=== PATIENT | male | born 1990 | race Caucasian/White ===

== ENCOUNTER 2020-10-12 15:39 | Emergency (ER) | payer OTHER ==
[~2020-10-12] VITALS: Ht 180.3 cm; Wt 84.0 kg
[2020-10-12 15:50] VITALS: BP 134/91
[2020-10-12] MEDS ORDERED: diphenhydrAMINE 50 MG/ML VIAL IM ONE (16:30)
[2020-10-12] MEDS ORDERED: PROCHLORPERAZINE 10 MG/2 ML VIAL. IM ONE (16:30)
[2020-10-12] MEDS ORDERED: KETOROLAC 60 MG/2 ML VIAL. IM ONE (16:30)
[2020-10-12] MEDS ORDERED: ONDA4TAB12 PO (16:32)
--- NOTE | 2020-10-12 16:33 | PHYS DOC ---
General Adult EDM: Chief Complaint: HEADACHE HPI: HPI: Patient is a 30-year-old male who presents with migraine. Patient states that symptoms started last night and when he woke up this morning he felt better but as the days progressed it has gotten worse. Patient reports nausea and vomiting x1 and light sensitivity. Patient patient says he has a history of migraines and he normally gets a couple year. Reporting pain behind his eyes and worse with bending over or standing up. Rates pain a 7 on a 10, took 1 g ibuprofen this morning with little relief. Review of Systems: Review of Systems: Constitutional: Denies fever or chills Eyes: Denies change in visual acuity HENT: Denies nasal congestion or sore throat Respiratory: Denies cough or shortness of breath Cardiovascular: Denies chest pain or edema GI: Denies abdominal pain, reports nausea and vomiting : Denies dysuria Musculoskeletal: Denies back pain or joint pain Integument: Denies rash Neurologic: Reports headache aggravated by movement, denies focal weakness or sensory changes Endocrine: Denies polyuria or polydipsia Lymphatic: Denies swollen glands Psychiatric: Denies depression or anxiety Physical Exam: PE: Constitutional: Well developed, well nourished, no acute distress, non-toxic appearance. [] HENT: Normocephalic, atraumatic, bilateral external ears normal, oropharynx moist, no oral exudates, nose normal. [] Eyes: PERRLA, EOMI, conjunctiva normal, no discharge. [] Neck: Normal range of motion, no tenderness, supple, no stridor. [] Cardiovascular:Heart rate regular rhythm, no murmur [] Lungs & Thorax: Bilateral breath sounds clear to auscultation [] Abdomen: Bowel sounds normal, soft, no tenderness, no masses, no pulsatile masses. [] Skin: Warm, dry, no erythema, no rash. [] Back: No tenderness, no CVA tenderness. [] Extremities: No tenderness, no cyanosis, no clubbing, ROM intact, no edema. [] Neurologic: Alert and oriented X 3, normal motor function, normal sensory function, no focal deficits noted. [] Psychologic: Affect normal, judgement normal, mood normal. [] EKG: EKG: [] Radiology/Procedures: Radiology/Procedures: [] Heart Score: Risk Factors: Risk Factors: DM, Current or recent (<one month) smoker, HTN, HLP, family history of CAD, obesity. Risk Scores: Score 0 - 3: 2.5% MACE over next 6 weeks - Discharge Home Score 4 - 6: 20.3% MACE over next 6 weeks - Admit for Clinical Observation Score 7 - 10: 72.7% MACE over next 6 weeks - Early Invasive Strategies Course & Med Decision Making: Course & Med Decision Making Pertinent Labs and Imaging studies reviewed. (See chart for details) []Patient is a 30-year-old male who presents with migraine. Patient states that symptoms started last night and when he woke up this morning he felt better but as the days progressed it has gotten worse. Patient reports nausea and vomiting x1 and light sensitivity. Patient patient says he has a history of migraines and he normally gets a couple year. Reporting pain behind his eyes and worse with bending over or standing up. Rates pain a 7 on a 10, took 1000mg of Ibuprofen this morning with little relief. Symptoms are consistent with migraines in the past. Denies worst headache of his life, denies thunderclap, negative babinski. Patient is hemodynamically stable and able to ambulate upon discharge. IM torodal, benadryl, compazine given. Prescription for Zofran given. Dragon Disclaimer: Dragon Disclaimer: This electronic medical record was generated, in whole or in part, using a voice recognition dictation system. Departure Departure: Impression: Primary Impression: Migraine Qualified Codes: G43.009 - Migraine without aura, not intractable, without status migrainosus Disposition: 01 MI HOME SELF CARE/HOMELESS Referrals: SRI CONNER DO (PCP) Patient Instructions: Recurrent Migraine Headache, Xyur-[id number] Additional Instructions: You are seen emergency room today for migraine headache. IM torodal, benadryl, compazine given. Prescription for Zofran given. Please return emergency room with worsening symptoms or concerns. Otherwise follow-up with your primary care physician for further management of chronic migraines. EMERGENCY DEPARTMENT GENERAL DISCHARGE INSTRUCTIONS Thank you for coming to [facility] (ED) today and trusting us with you care. We trust that you had a positivie experience in our Emergency Department. If you wish to speak to the department management, you may call the director at [phone]. YOUR FOLLOW UP INSTRUCTIONS ARE FOLLOWS: 1. Do you have a private Doctor? If you do not have a private doctor, please ask for a resource list of physicians or clinics that may be able to assist you with fol low up care. 2. The Emergency Physician has interpreted your x-rays. The X-Ray specialist will also review them. If there is a change in the findings, you will be notified in 48 hours when at all possible. 3. A lab test or culture has been done, your results will be reviewed and you will be notified if you need a change in treatment. ADDITIONAL INSTRUCTIONS AND INFORMATION: 1. Your care today has been supervised by a physician who is specially trained in emergency care. Many problems require more than one evaluation for a complete diagnosis and treatment. We recommend that you schedule your follow up appointment as r ecommended to ensure complete treatment of you illness or injury. If you are unable to obtain follow up care and continue to have a problem, or if your condition worsens, we recommend that you return to the ED. 2. We are not able to safely determine your condition over the phone nor are we able to give sound medical advice over the phone. For these safety reasons, if you call for medical advice we will ask you to come to the ED for further evaluation. 3. If you have any questions regarding these discharge instructions please call the ED at [phone]. SAFETY INFORMATION: In the interest of safety, wellness, and injury prevention; we encourage you to wear your sealbelt, if you smoke; quite smoking, and we encourage family to use a protective helmet for bicycling and other sporting events that present an increased risk for head injury. IF YOUR SYMPTOMS WORSEN OR NEW SYMPTOMS DEVELOP, OR YOU HAVE CONCERNS ABOUT YOUR CONDITION; OR IF YOUR CONDITION WORSENS WHILE YOU ARE WAITING FOR YOUR FOLLOW UP APPOINTMENT; EITHER CONTACT YOUR PRIMARY CARE DOCTOR, THE PHYSICIAN WHOSE NAME AND NUMBER YOU WERE GIVEN, OR RETURN TO THE ED IMMEDIATELY. Scripts Ondansetron (ONDANSETRON ODT) 4 Mg Tab.rapdis 1 TAB PO PRN Q6-8HRS for nausea, #16 TAB Prov: RODRIGUEZ SÁNCHEZ APRN 10/12/20 RODRIGUEZ SÁNCHEZ APRN Oct 12, 2020 16:33
== END 2020-10-12 16:54 | disposition home or self-care (01) ==
LOC: EDBD 15:39 → ER 15:39
DX: G43.009 Migraine without aura, not intractable, without status migrainosus (principal); R11.2 Nausea with vomiting, unspecified
CPT/HCPCS: 96372; 99284; J0780; J1200; J1885

== ENCOUNTER 2020-10-22 16:39 | Emergency (ER) | payer OTHER ==
[~2020-10-22] VITALS: Ht 180.3 cm; Wt 84.0 kg
[~2020-10-22 16:39] MED LIST: ONDA4TAB12 PO
[2020-10-22 17:25] VITALS: BP 159/89
--- NOTE | 2020-10-22 17:27 | EKG ---
[address] [address] Test Date: 2020-10-22 Test Time: 17:05:47 Pat Name: DANIEL PAYAN Department: Room: Gender: M [employer]iller: : 1990 Requested By: DEPARTMENT EMERGENCY Order Number: [id number] Reading MD: Measurements Intervals [place] Rate: 69 P: 65 [place]: 158 QRS: 68 QRSD: 92 T: 43 QT: 376 QTc: 409 Interpretive Statements SINUS RHYTHM NORMAL ECG RI6.02 No previous ECG available for comparison
--- NOTE | 2020-10-22 17:32 | PHYS DOC ---
Past History Past Medical History: Migraines Past Medical History OCD Past Surgical History: No Surgical History Smoking: Greater than 1 pack/day Alcohol Use: None Drug Use: None General Adult EDM: Chief Complaint: CHEST PAIN HPI: HPI: Patient is a 30 year old healthy male who presents with chest wall discomfort. He states it has been ongoing for the past 5 days. He states he notices it more when he is sitting and resting and it does not increase with exertion or emotion. The pain does not increase or decrease with food intake. He also says he has had increasing tension headaches recently due to stress. (His significant other recently had surgery for an ectopic , he also has OCD and has been undergoing immersion therapy). He has never had this type of pain before. He does not recall anything that could have brought this pain on, including heavy workouts. He has not had any recent long travel, infections or sick contacts, use of exogenous hormones like testosterone, trauma or surgeries. He has no FH of CAD in himself or his family, but does have a FH of HTN. He currently rates his pain +5/10, but states it is manageable and did not want any pain medication. He has no other complaints at this time. Review of Systems: Review of Systems: Constitutional: Denies fever or chills Eyes: Denies redness or eye pain HENT: Denies nasal congestion or sore throat Respiratory: Denies cough or shortness of breath Cardiovascular: States his chest pain has been constant for the past five days. GI: Denies abdominal pain, nausea, or vomiting : Denies dysuria or hematuria Musculoskeletal: Denies back pain or joint pain Integument: Denies rash or skin lesions Neurologic: Denies headache, focal weakness or sensory changes Complete systems were reviewed and found to be within normal limits, except as documented in this note. Allergies: Allergies: Allergies Coded Allergies Type Severity Reaction Last Updated Verified No Known Drug Allergies 10/12/20 No Physical Exam: PE: Constitutional: Well developed, well nourished, no acute distress, non-toxic olive earance HENT: Normocephalic, atraumatic Eyes: PERRL, EOMI, conjunctiva normal, no discharge Neck: Normal range of motion, no tenderness, supple Lungs & Thorax: No respiratory distress, equal chest rise and fall Heart: RRR no m/r/g. Chest wall tenderness with palpation bilaterally but moreso on the L than the right. Tenderness also extends in to the L shoulder and trapezius. Abdomen: Soft, no tenderness Skin: Warm, dry, no erythema, no rash Back: No midline tenderness, no CVA tenderness. Paraspinal and trapezius muscle hypertonicity present on the L. Extremities: No tenderness, ROM intact, no edema Neurologic: Alert and oriented X 3, normal motor function, normal sensory function, no focal deficits noted Psychologic: Affect normal, judgment normal Current Patient Data: Vital Signs: Vital Signs Date Time Temp Pulse Resp B/P (MAP) Pulse Ox O2 Delivery O2 Flow Rate FiO2 10/22/20 17:25 98.2 67 16 159/89 (112) 99 Room Air EKG: EKG: @1705 NSR at 69bpm, NO ST elevation, QRS 92ms, QT/QTc 376/409ms Radiology/Procedures: Radiology/Procedures: []PROCEDURE: CHEST AP ONLY XR CHEST 1V Clinical History: Reason: left side chest pain times 5 days, hx of TB in 2013 / . Instructions: / History: Technique: AP view of the chest was obtained at 10/22/2020 5:30 PM. Comparison: None. Findings: The cardiomediastinal silhouette is normal. The pulmonary vasculature is normal. The lungs and pleural margins are clear. Impression: No evidence of an acute cardiopulmonary process. Electronically signed by: Sd Almonte III, MD (10/22/2020 5:44 PM) [facility] Heart Score: HEART Score for Chest Pain: HEART Score for Chest Pain Response (Comments) Value History Slighlty/Non-Suspicious 0 ECG Normal 0 Age < 45 0 Risk Factors 1 or 2 Risk Factors 1 Troponin < Normal Limit 0 Total 1 Risk Factors: Risk Factors: DM, Current or recent (<one month) smoker, HTN, HLP, family history of CAD, obesity. Risk Scores: Score 0 - 3: 2.5% MACE over next 6 weeks - Discharge Home Score 4 - 6: 20.3% MACE over next 6 weeks - Admit for Clinical Observation Score 7 - 10: 72.7% MACE over next 6 weeks - Early Invasive Strategies Course & Med Decision Making: Course & Med Decision Making Pertinent Labs and Imaging studies reviewed. (See chart for details) Misael Cedeño is a 30 yo male that presents today with chest pain. Based on history he is low risk chest pain, his HEART score is +1 (with smoking as his only risk factor). His EKG showed no acute ST elevation, his Troponin was negative, and his CXR was negative for any intra-thoracic abnormality or in fection. He is low risk for PE based on the Wells criteria, therefor PERC was used to stratify his risk for PE, which was negative. He has close follow up with his PCP with an appointment that is already scheduled for next . He also has muscle relaxers at home that he will use for his muscle hypertonicity. I discussed strict return precautions with him including if his pain should worsen, change, or he has any increasing SOB. He did not have any further questions or concerns at this time and was comfortable with following up as an outpt. Patient stable for discharge with outpatient follow-up with PCP. Discussed findings and plan with patient, who acknowledges understanding and agreement. Ignacio Disclaimer: Ignacio Disclaimer: This electronic medical record was generated, in whole or in part, using a voice recognition dictation system. Departure Departure: Impression: Primary Impression: Chest pain Qualified Codes: R07.9 - Chest pain, unspecified Disposition: 01 DC HOME SELF CARE/HOMELESS Condition: STABLE Referrals: SRI CONNER DO (PCP) Patient Instructions: Anxiety and Panic Attacks, Rkmu-[id number], Chest Pain (Nonspecific), Maul-rg-[id number] Additional Instructions: Follow with your doctors for re-evaluation of your symptoms. PATRICK PYLE DO Oct 22, 2020 17:32
[2020-10-22 17:45] LABS: BASO % 1 % (0-3); EOS # 0.1 x10^3/uL (0.0-0.7); EOS % 2 % (0-3); HEMOGLOBIN 15.6 g/dL (13.0-17.5); LYMPH # 2.4 x10^3/uL (1.0-4.8); LYMPH % 34 % (24-48); MEAN CORPUSCULAR HEMOGLOBIN 31 pg (25-35); MEAN CORPUSCULAR HGB CONC 34 g/dL (31-37); MEAN CORPUSCULAR VOLUME 93 fL (79-100); MONO # 0.5 x10^3/uL (0.0-1.1); MONO % 7 % (0-9); NEUT # 3.9 x10^3uL (1.8-7.7); NEUT % 56 % (31-73); PLATELET COUNT 236 x10^3/uL (140-400); RED BLOOD COUNT 4.97 x10^6/uL (4.30-5.70); RED CELL DISTRIBUTION WIDTH 12.5 % (11.5-14.5)
--- NOTE | 2020-10-22 17:46 | RAD ---
XR CHEST 1V Clinical History: Reason: left side chest pain times 5 days, hx of TB in 2013 / . Instructions: / History: Technique: AP view of the chest was obtained at 10/22/2020 5:30 PM. Comparison: None. Findings: The cardiomediastinal silhouette is normal. The pulmonary vasculature is normal. The lungs and pleura l margins are clear. Impression: No evidence of an acute cardiopulmonary process. Electronically signed by: Sd Almonte III, MD (10/22/2020 5:44 PM) [facility]
[2020-10-22 17:55] LABS: CALCIUM 9.2 mg/dL (8.5-10.1); CREATININE 1.1 mg/dL (0.7-1.3); GFR 79.7; POTASSIUM 4.2 mmol/L (3.5-5.1)
[2020-10-22 18:00] LABS: ALBUMIN 4.3 g/dL (3.4-5.0); ALBUMIN/GLOBULIN RATIO 1.3 (1.0-1.7); TOTAL BILIRUBIN 0.4 mg/dL (0.2-1.0); TOTAL PROTEIN 7.5 g/dL (6.4-8.2)
== END 2020-10-22 18:15 | disposition home or self-care (01) ==
LOC: ER 16:39
DX: R07.89 Other chest pain (principal); G43.909 Migraine, unspecified, not intractable, without status migrainosus; F42.9 Obsessive-compulsive disorder, unspecified; F17.200 Nicotine dependence, unspecified, uncomplicated
CPT/HCPCS: 36415; 71045; 80053; 83690; 84484; 85025; 93005; 99285

== ENCOUNTER 2021-02-05 08:31 | Emergency (ER) | payer OTHER ==
[~2021-02-05] VITALS: Ht 180.3 cm; Wt 84.0 kg
[2021-02-05 08:37] VITALS: BP 134/83
--- NOTE | 2021-02-05 08:57 | PHYS DOC ---
Past History Past Medical History: Migraines Past Surgical History: No Surgical History Smoking: Cigarettes, Greater than 1 pack/day Alcohol Use: None Drug Use: None General Adult EDM: Chief Complaint: HEADACHE HPI: HPI: 30-year-old male presents with headache. He describes it as a global headache with pressure. It is moderate to severe in intensity. Patient has a history of migraines, but this does not feel like his usual migraines. This headache seems to be worse. He got his second COVID-19 vaccine yesterday. He started to get a headache last night. Patient denies any numbness, tingling, or altered sensation. No difficulty with speech or ambulation. He does have photophobia. No vomiting. Review of Systems: Review of Systems: Constitutional: Denies fever or chills Eyes: Denies change in visual acuity HENT: Denies nasal congestion or sore throat Respiratory: Denies cough or shortness of breath Cardiovascular: Denies chest pain or edema GI: Denies abdominal pain, nausea, vomiting, bloody stools or diarrhea : Denies dysuria Musculoskeletal: Denies back pain or joint pain Integument: Denies rash Neurologic: Headache. Denies focal weakness or sensory changes Endocrine: Denies polyuria or polydipsia Lymphatic: Denies swollen glands Psychiatric: Denies depression or anxiety Allergies: Allergies: Allergies Coded Allergies Type Severity Reaction Last Updated Verified No Known Drug Allergies 10/12/20 No Physical Exam: PE: Constitutional: Well developed, well nourished, no acute distress, non-toxic appearance. [] HENT: Normocephalic, atraumatic, bilateral external ears normal, oropharynx moist, no oral exudates, nose normal. [] Eyes: PERRLA, EOMI, conjunctiva normal, no discharge. Photophobia[] Neck: Normal range of motion, no tenderness, supple, no stridor. [] Cardiovascular: Heart rate regular rhythm, no murmur [] Lungs & Thorax: Bilateral breath sounds clear to auscultation [] Abdomen: Bowel sounds normal, soft, no tenderness, no masses, no pulsatile masses. [] Skin: Warm, dry, no erythema, no rash. [] Back: No tenderness, no CVA tenderness. [] Extremities: No tenderness, no cyanosis, no clubbing, ROM intact, no edema. [] Neurologic: Alert and oriented X 3, normal motor function, normal sensory function, no focal deficits noted. [] Psychologic: Affect normal, judgement normal, mood normal. [] Current Patient Data: Vital Signs: Vital Signs Date Time Temp Pulse Resp B/P (MAP) Pulse Ox O2 Delivery O2 Flow Rate FiO2 02/05/21 08:37 98.2 88 16 134/83 (100) 96 Room Air EKG: EKG: [] Radiology/Procedures: Radiology/Procedures: [] Heart Score: C/O Chest Pain: N/A Risk Factors: Risk Factors: DM, Current or recent (<one month) smoker, HTN, HLP, family history of CAD, obesity. Risk Scores: Score 0 - 3: 2.5% MACE over next 6 weeks - Discharge Home Score 4 - 6: 20.3% MACE over next 6 weeks - Admit for Clinical Observation Score 7 - 10: 72.7% MACE over next 6 weeks - Early Invasive Strategies Course & Med Decision Making: Course & Med Decision Making Pertinent Labs and Imaging studies reviewed. (See chart for details) The patient's labs are unremarkable. For his headache is given 1 L normal saline, 25 mg of Benadryl, 10 mg Reglan, and 30 mg of Toradol. He is feeling much better at this time and would like to go home. He is stable for discharge at this time. [] Dragon Disclaimer: Ignacio Disclaimer: This electronic medical record was generated, in whole or in part, using a voice recognition dictation system. Departure Departure: Impression: Primary Impression: Headache Qualified Codes: R51.9 - Headache, unspecified Disposition: HOME / SELF CARE / HOMELESS Condition: IMPROVED Referrals: SRI CONNER DO (PCP) Patient Instructions: General Headache Without Cause, [id number] CRYSTAL BRUSH DO February 05, 2021 08:57
[2021-02-05] MEDS ORDERED: METOCLOPRAMIDE HCL 10 MG/2 ML VIAL. IVP ONE (09:00)
[2021-02-05] MEDS ORDERED: diphenhydrAMINE 50 MG/ML VIAL IVP ONE (09:00)
[2021-02-05] MEDS ORDERED: IV NORMAL SALINE 1,000ML 1,000 ML IV ONE (09:00)
[2021-02-05] MEDS ORDERED: KETOROLAC 30 MG/ML VIAL. IVP ONE (09:00)
[2021-02-05 09:15] LABS: BASO # 0.1 x10^3/uL (0.0-0.2); BASO % 1 % (0-3); EOS % 0 % (0-3); HEMATOCRIT 45.9 % (39.0-53.0); HEMOGLOBIN 15.6 g/dL (13.0-17.5); LYMPH # 0.9 x10^3/uL (1.0-4.8); LYMPH % 8 % (24-48); MEAN CORPUSCULAR HEMOGLOBIN 32 pg (25-35); MEAN CORPUSCULAR HGB CONC 34 g/dL (31-37); MEAN CORPUSCULAR VOLUME 95 fL (79-100); MONO # 0.6 x10^3/uL (0.0-1.1); MONO % 6 % (0-9); NEUT # 9.2 x10^3uL (1.8-7.7); NEUT % 85 % (31-73); PLATELET COUNT 198 x10^3/uL (140-400); RED BLOOD COUNT 4.82 x10^6/uL (4.30-5.70); RED CELL DISTRIBUTION WIDTH 12.8 % (11.5-14.5); WHITE BLOOD COUNT 10.8 x10^3/uL (4.0-11.0)
[2021-02-05 09:21] LABS: CALCIUM 8.9 mg/dL (8.5-10.1); CREATININE 1.1 mg/dL (0.7-1.3); GFR 79.7; POTASSIUM 4.2 mmol/L (3.5-5.1)
[2021-02-05 09:26] LABS: ALBUMIN/GLOBULIN RATIO 1.3 (1.0-1.7); TOTAL BILIRUBIN 1.1 mg/dL (0.2-1.0)
== END 2021-02-05 10:58 | disposition home or self-care (01) ==
LOC: ER 08:31
DX: G43.909 Migraine, unspecified, not intractable, without status migrainosus (principal); F17.210 Nicotine dependence, cigarettes, uncomplicated
CPT/HCPCS: 36415; 80053; 85025; 96361; 96374; 96375; 99284; J1200; J1885; J2765; J7030

== ENCOUNTER 2021-11-24 02:39 | Emergency (ER) | payer OTHER ==
[~2021-11-24] VITALS: Ht 180.3 cm; Wt 89.2 kg
--- NOTE | 2021-11-24 03:08 | PHYS DOC ---
Past History Past Medical History: Migraines Additional Past Medical Histor: OCD Past Surgical History: No Surgical History Smoking: Cigarettes, Greater than 1 pack/day Alcohol Use: None Drug Use: None Adult General Chief Complaint Chief Complaint: HEADACHE HPI HPI Patient is a 31-year-old male who presents with a chief complaint of migraine. Patient states he has been getting migraines most of his adult life and gets them couple of times a year. States he is in the and when he is moved around quite a bunch this seems to usually trigger it. States he has had this on for couple days, whole head, with some mild photophobia and mild nausea but no vomiting. States he has had CAT scans and MRIs of his head that were normal. Denies any recent traumas, illnesses, fevers, neck pain, chest pain, shortness of breath, abdominal pain, vomiting, diarrhea or blood in the stool. Denies any known ill contacts. Denies any COVID/flu/cold symptoms. States he is been otherwise eating and drinking normally for him. States he is making urine and stool normally for him. Review of Systems Review of Systems Review of systems otherwise unremarkable except noted in HPI Allergies Allergies Allergies Coded Allergies Type Severity Reaction Last Updated Verified No Known Drug Allergies 10/12/20 No Physical Exam Physical Exam Constitutional: Well developed, well nourished, no acute distress, non-toxic a ppearance. [] HENT: Normocephalic, atraumatic, bilateral external ears normal, oropharynx moist, no oral exudates, nose normal. [] Eyes: PERRLA, EOMI, conjunctiva normal, no discharge. [] Neck: Normal range of motion, no tenderness, supple, no stridor. [] Cardiovascular:Heart rate regular rhythm, no murmur [] Lungs & Thorax: No respiratory distress Skin: Warm, dry, no erythema, no rash. [] Back: No tenderness, no CVA tenderness. [] Extremities: No tenderness, no cyanosis, no clubbing, ROM intact, no edema. [] Neurologic: Alert and oriented X 3, normal motor function, normal sensory function, able to sit, stand and walk without issue, no focal deficits noted. [] Psychologic: Affect normal, judgement normal, mood normal. [] Current Patient Data Vital Signs Vital Signs Date Time Temp Pulse Resp B/P (MAP) Pulse Ox O2 Delivery O2 Flow Rate FiO2 3/2/22 02:48 97.2 57 18 142/94 (110) 99 Room Air EKG EKG [] Radiology/Procedures Radiology/Procedures [] Heart Score C/O Chest Pain: No Risk Factors: Risk Factors: DM, Current or recent (<one month) smoker, HTN, HLP, family history of CAD, obesity. Risk Scores: Risk Factors: DM, Current or recent (<one month) smoker, HTN, HLP, family history of CAD, obesity. Course & Med Decision Making Course & Med Decision Making Patient is a 31-year-old male who presents complaining of a migraine Vital signs notable for sinus bradycardia, but patient states his heart rate is always in the 50s as he exercises a lot in the . Physical exam noted above. Given pain medicine and antiemetics. On reassessment patient migraine resolved and able to take p.o. Discussed symptom treatment at home. Advised to follow-up with primary care as needed. Gave return precautions to the ED. Patient grateful, verbalized understanding and agreed with plan of discharge. [] Dragon Disclaimer Dragon Disclaimer This electronic medical record was generated, in whole or in part, using a voice recognition dictation system. Departure Departure: Impression: Primary Impression: Migraine Disposition: HOME / SELF CARE / HOMELESS Condition: STABLE Referrals: BETHANY BELL-LURDES (PCP) Patient Instructions: Migraine Headache Additional Instructions: Thank you for coming into the emergency department tonight and allowing us to take care of you. Please read the attached information carefully to go over things we discussed. You can use Tylenol, ibuprofen and Benadryl at home as needed for symptom control. Please follow-up with your primary care physician as needed to update on ED visit and set up a follow-up appointment. Please come back with new or concerning symptoms as we discussed. GOVIND MILLS MD Nov 24, 2021 03:08
[2021-11-24] MEDS ORDERED: KETOROLAC 30 MG/ML VIAL. IM ONE (03:30)
[2021-11-24] MEDS ORDERED: diphenhydrAMINE HCL 25 MG CAPSULE PO ONE (03:30)
[2021-11-24] MEDS ORDERED: PROCHLORPERAZINE 10 MG/2 ML VIAL. IM ONE (03:30)
[2021-11-24] MEDS ORDERED: DEXAMETHASONE 4 MG TABLET PO ONE (03:30)
[2021-11-24] MEDS ORDERED: ONDANSETRON ODT 4 MG TAB.RAPDIS PO ONE (03:30)
[2021-11-24] MEDS ORDERED: oxyCODONE/APAP 5/325 1 TAB TABLET PO ONE (03:45)
[2021-11-24 03:46] VITALS: BP 138/84
== END 2021-11-24 03:45 | disposition home or self-care (01) ==
LOC: ER 02:39
DX: G43.909 Migraine, unspecified, not intractable, without status migrainosus (principal); F17.210 Nicotine dependence, cigarettes, uncomplicated
CPT/HCPCS: 96372; 96374; 99284; J0780; J1885; J3010; J8540; Q0162; Q0163